=== PATIENT | male | born 1995 | race Caucasian/White ===

== ENCOUNTER 2024-04-07 16:21 | Emergency (ER) | payer MEDICAID ==
[~2024-04-07] VITALS: Ht 175.3 cm; Wt 70.0 kg
[2024-04-07 16:27] VITALS: O2SAT 98
[2024-04-07] MEDS: SODIUM CHLORIDE 0.9% 1,000 ML IV ONE (17:50)
[2024-04-07 18:39] VITALS: TEMP 36.66960
[2024-04-07 20:11] LABS: BASOPHILS % 0.2 % (0.0-2.0); EOSINOPHILS % 0.3 % (0.0-5.0); HEMATOCRIT. 37.4 % (42.0-52.0); HEMOGLOBIN. 12.6 g/dL (14.0-18.0); LYMPHOCYTES % 13.9 % (20.0-50.0); MEAN CORPUSCULAR HGB CONC 33.7 g/dL (31.0-37.0); MEAN PLATELET VOLUME 7.6 fl (7.4-10.4); MONOCYTES % 6.4 % (2.0-8.0); NEUTROPHILS % 79.2 % (40.0-76.0); PLATELET 176 x1000/uL (130-400); RED BLOOD CELL COUNT 4.07 mill/uL (4.7-6.1); RED CELL DISTRIBUTION WIDTH 12.9 % (11.6-14.6); WHITE BLOOD COUNT 12.2 x1000/uL (4.5-11.0)
[2024-04-07] MEDS ORDERED: LEVETIRACETAM 500MG PREMIX 100 ML IV ONE (20:15)
[2024-04-07 20:16] LABS: CHLORIDE 109 mEq/L (98-107); SODIUM 139 mEq/L (136-145)
[2024-04-07] MEDS ORDERED: KEPP500 MT (20:16)
[2024-04-07 20:17] LABS: CARBON DIOXIDE 24 mEq/L (21-32)
[2024-04-07 20:18] LABS: CALCIUM 8.6 mg/dL (8.7-10.4)
[2024-04-07 20:23] LABS: GLUCOSE 72 mg/dL (70-105); UREA NITROGEN BLOOD 6 mg/dL (9-23)
[2024-04-07 20:25] LABS: CREATINE KINASE 153 IU/L (46-171)
[2024-04-07 20:33] LABS: ETHANOL BLOOD < 10 mg/dL (<10)
[2024-04-07 21:56] VITALS: BP 123/78; PULSE 80; RESP 18; O2SAT 100
== END 2024-04-07 21:59 | disposition home or self-care (01) ==
LOC: ER 16:21
DX: S00.83XA Contusion of other part of head, initial encounter (principal); G40.909 Epilepsy, unspecified, not intractable, without status epilepticus; X58.XXXA Exposure to other specified factors, initial encounter; Y93.89 Activity, other specified; Y92.89 Other specified places as the place of occurrence of the external cause; Y99.8 Other external cause status
CPT/HCPCS: 80048; 80320; 82550; 83605; 85025; 36415; 70450; 70486; 96360; 99284; J7030; Z7610 ×3; G0480